=== PATIENT | male | born 1960 ===

== ENCOUNTER → 2017-04-25 | Outpatient (CLI) | payer OTHER ==
[~2017-04-25] MED LIST: ASACOL HD800 MG PO; GLUCOVANCE 2.5/1 TAB PO; HYZAAR 50-12.1 UDTAB PO; METFORMIN HCL500 MG PO
== END | disposition home or self-care (01) ==
LOC: PPH VACUNA 07:42
DX: Z23 Encounter for immunization (principal)

== ENCOUNTER 2018-06-28 08:08 | Emergency (ER) | payer OTHER ==
[~2018-06-28] VITALS: Ht 182.9 cm; Wt 93.4 kg
== END 2018-06-28 13:00 | disposition home or self-care (01) ==
LOC: ER 08:08
DX: M79.661 Pain in right lower leg (principal); M54.5 Low back pain

== ENCOUNTER → 2018-11-24 | Outpatient (CLI) | payer OTHER | END | disposition home or self-care (01) | LOC: RAD 08:02 | DX: S82.891A Other fracture of right lower leg, initial encounter for closed fracture (principal) ==

== ENCOUNTER 2019-09-14 07:25 | Outpatient (CLI) | payer OTHER | END 2019-09-14 07:33 | disposition home or self-care (01) | LOC: RAD 07:25 | PROVIDERS: ATTEND Specialist | DX: I10 Essential (primary) hypertension (principal) ==

== ENCOUNTER 2019-12-17 07:56 | Outpatient (CLI) | payer OTHER | END 2019-12-17 07:59 | disposition home or self-care (01) | LOC: RAD 07:56 | PROVIDERS: ATTEND Specialist | DX: M25.571 Pain in right ankle and joints of right foot (principal); M25.572 Pain in left ankle and joints of left foot ==